=== PATIENT | female | born 1990 | race Caucasian/White ===

== ENCOUNTER 2017-05-11 20:35 | Emergency (ER) | payer OTHER ==
[2017-05-11 21:16] VITALS: BP 112/55
[2017-05-11] MEDS ORDERED: Ondansetron ODT TAB* 4 MG PO ONE (21:44)
--- NOTE | 2017-05-11 21:47 | UC ---
Abdominal Pain Female HPI - History of Current Complaint Chief Complaint: UCGI Stated Complaint: VOMITING/DIARRHEA Time Seen by Provider: 05/11/17 21:41 Hx Last Menstrual Period: 04/07/17 ?: No Onset/Duration: Sudden Onset - this morning with nausea/ vomiting and diarrhea. , Still Present Timing: Constant Severity Initially: Moderate Severity Currently: Moderate Location: Other - just feels off/ not pain. Radiates: No Character: Unable to describe Aggravating Factor(s): Nothing - has not tried eating. Alleviating Factor(s): Nothing Associated Signs and Symptoms: Positive: Decreased Appetite, Nausea, Vomiting, Diarrhea. Negative: Fever, Constipation, Blood in Stool, Urinary Symptoms - Risk Factors Ectopic Risk Factor: Negative Ovarian Torsion Risk Factor: Reproductive Age Allergies/Adverse Reactions: Allergies Allergy/AdvReac Type Severity Reaction Status Date / Time No Known Allergies Allergy Verified 05/11/17 21:07 PMH/Surg Hx/FS Hx/Imm Hx Previously Healthy: Yes - Surgical History Surgical History: None - Family History Known Family History: Positive: Cardiac Disease, Hypertension, Diabetes - Social History Occupation: Employed Full-time Lives: With Family Alcohol Use: Rare Substance Use Type: None Smoking Status (MU): Light Every Day Tobacco Smoker Type: Cigarettes Amount Used/How Often: 5 -6 CIGS PERDAY Have You Smoked in the Last Year: Yes - Immunization History Most Recent Tetanus Shot: unknown Review of Systems Constitutional: Fatigue Gastrointestinal: Vomiting, Diarrhea, Nausea All Other Systems Reviewed And Are Negative: Yes Physical Exam Triage Information Reviewed: Yes Appearance: Well-Appearing, No Pain Distress, Well-Nourished Vital Signs: Initial Vital Signs Temp 97 F 05/11/17 21:08 Pulse 93 05/11/17 21:08 Resp 18 05/11/17 21:08 BP 112/55 05/11/17 21:08 Pulse Ox 99 05/11/17 21:08 Vital Signs Reviewed: Yes Eyes: Positive: Conjunctiva Clear ENT: Positive: Pharynx normal - moist mucus membranes., TMs normal Neck exam: Normal Respiratory Exam: Normal Cardiovascular Exam: Normal Abdomen Description: Positive: No Organomegaly. Negative: Nontender - mild suprapubic tenderness. Bowel Sounds: Positive: Present Musculoskeletal Exam: Normal Neurological Exam: Normal Psychological Exam: Normal Skin Exam: Normal Abd Pain Female Course/Dx - Differential Dx/Diagnosis Differential Diagnosis: Appendicitis, Constipation, Irritable Bowel Syndrome, Pancreatitis, Urinary Tract Infection Provider Diagnoses: Viral gastroenteritis. First trimester Discharge - Discharge Plan Condition: Stable Disposition: HOME Prescriptions: Ondansetron ODT TAB* [Zofran 4 MG Odt TAB*] 4 mg PO Q6H PRN #30 tab.odt PRN Reason: Nausea/Vomiting Patient Education Materials: Gastroenteritis (ED), (ED), Ondansetron (By mouth) Forms: *Work Release Additional Instructions: Make sure to start vitamins tomorrow.
[2017-05-11] MEDS ORDERED: Ondansetron ODT TAB* 4 MG ONE (21:57)
== END 2017-05-11 22:10 | disposition home or self-care (01) ==
LOC: UCCORT 20:35
DX: O26.891 Other specified pregnancy related conditions, first trimester (principal); A08.4 Viral intestinal infection, unspecified; Z3A.00 Weeks of gestation of pregnancy not specified; F17.210 Nicotine dependence, cigarettes, uncomplicated
CPT/HCPCS: 81003; 84702; 99202; A9270-GY; G0463

== ENCOUNTER 2018-11-29 15:51 | Observation (INO) | payer OTHER ==
[2018-11-29] MEDS ORDERED: Acetaminophen TAB* 325 MG PO PRN (19:34)
[2018-11-29] MEDS: Pantoprazole IV* 40 MG IV SCH (20:06)
[2018-11-29] MEDS: Morphine INJ* 2 MG/ML 1 ML SYRINGE (TWO MG - NEW SYRINGE VERSION) IV PRN (20:06)
[2018-11-29] MEDS: NS 0.9% 1000 ML** 1,000 ML IV SCH (20:22)
[2018-11-29] MEDS: Sucralfate TAB* 1 GM PO SCH (20:50)
[2018-11-29] MEDS ORDERED: Lidocaine 2% VISCOUS* 15 ML UDC SWISH SWAL PRN (23:19)
[2018-11-29] MEDS ORDERED: Al Hydrox/Mg Hydrox/Simet LIQ* 30 ML UDC PO ONE (23:20)
[2018-11-29] MEDS ORDERED: diPHENhydraMINE LIQ* 12.5 MG/5 ML UDC PO PRN (23:21)
[2018-11-29] MEDS ORDERED: Famotidine IV* 10 MG/ML 2 ML (20 mg) IV SLOW PU ONE (23:22)
--- NOTE | 2018-11-29 23:38 | HP ---
CC: Providers at [facility] in [facility] MEDICINE HISTORY AND PHYSICAL: DATE OF ADMISSION: 11/29/18 ATTENDING PHYSICIAN: Dr. Ana Ngo * (dictation provided by Hoda Ellison, RICCARDO ). CHIEF COMPLAINT: Abdominal pain. HISTORY OF PRESENT ILLNESS: Ms. Tammy Lucas is a 28-year-old female with a past medical history of cholecystectomy in 2017, borderline personality disorder who presents to the hospital today with concern for abdominal pain. Ms. Lucas states she has had ongoing abdominal pain since March of 2018. At first it seemed to only bother her when she would cough; however, by August of 2018, she noted that it hurt in her right upper abdomen and in her mid abdomen when she coughed, laughed or sneezed. She also notes to me that she has not really eaten much of anything since December of 2017 when she had her last child. She reports only a 10- pound weight loss, however. In the setting of this, she notes that 2 days ago she began to have much more severe pain. She described a sensation of pressure building up into her chest. She notes that she will arch her back and over the time this pressure will relieve and then she will feel better; however, the pain is constant. It is in epigastric region , radiating up through her mid chest and around to her right breast. For this pain, she went to the [facility] on 11/27/18. At that time, she had a CT abdomen and pelvis with IV contrast that showed "no acute intra- abdominal or pelvic abnormality". It does not appear that oral contrast was used. She had labs on 11/27/18 that were unremarkable. She was admitted to the hospital and treated with pantoprazole and Carafate. Despite this, she states she was unable to tolerate clear liquids and vomited when she tried to drink a small amount of broth yesterday. There was concern that perhaps the patient had duodenitis or a peptic ulcer disease and, therefore, she was transferred to [facility] when GI was not available over the weekend at that facility. The patient states her last bowel movement was today. She states she is still having continuous pain. I will note, in addition, that she did describe intermittent and frequent nausea at least since December, which is responsible for the fact that she feels like she has not been eating normally. However, she does not correlate the nausea and the pain together. PAST MEDICAL HISTORY: 1. Cholecystectomy in 2017. 2. Borderline personality disorder. 3. History of inpatient psychiatric admissions. 4. Anxiety. 5. Depression. 6. GERD. OUTPATIENT MEDICATIONS: Valacyclovir only. ALLERGIES: No known drug allergies. FAMILY HISTORY: Reviewed and noncontributory. SOCIAL HISTORY: No report of alcohol use. The patient states she does smoke marijuana. No report of other illicit drug use. She is a smoker and has had a nicotine patch at [facility], which I will continue. REVIEW OF SYSTEMS: A 14-point review of systems was completed with Ms. Lucas and all those not mentioned above were negative. PHYSICAL EXAMINATION GENERAL: Ms. Lucas is lying in the bed, she is in no acute distress. VITAL SIGNS: Temperature 98.3, pulse rate 62, respiratory rate 20, O2 saturation 98% on room air, blood pressure 114/57. LUNGS: Clear to auscultation bilaterally, with no accessory muscle use and good aeration. HEART: S1 and S2. No murmur, rub or gallop. Regular. ABDOMEN: The patient has soft abdomen throughout. She has no pain in the lower quadrants, but she does evidence pain when pressed in the epigastric and right upper quadrant. There is no rebound. There is no guarding. EXTREMITIES: No cyanosis or edema. NEURO: She is alert. She is oriented x3. She moves all extremities equally. There is no facial asymmetry or focal weakness. Extraocular movements are intact. SKIN: Intact. DIAGNOSTIC STUDIES/LAB DATA: CRP on 11/28/18 was 3.8. Her cannabinoids are positive. Opiates are positive and, I believe, this is status post opiates for pain in the emergency room and during the admission. Potassium 4.0, chloride 104, serum bicarbonate 27, BUN 17, creatinine 0.8, glucose 90. AST 20, ALT 24, alk phos 73. Chest x-ray shows no acute cardiomegaly, infiltrates or effusions. I do not see a beta-hCG and will check that now. WBC is 5.5, hemoglobin is 12.1, hematocrit 36.1, platelet count 230. ASSESSMENT: Ms. Lucas is a 28-year-old female with a past medical history of cholecystectomy in 2017, with psychiatric history including borderline personality disorder, anxiety, and depression, with psychiatric admissions, who presents to the hospital today with concern for severe abdominal pain and inability to tolerate oral intake. Our plans will be for inpatient admission with expected length of stay to be greater than 2 days for the followin. Abdominal pain: The patient's workup thus far has been negative. Her CT abdomen and pelvis is unremarkable. Her chest x-ray was unremarkable. Her labs are unremarkable. I have consulted with Dr. Torres from the Gastroenterology Service and she will be seeing her in the morning to reassess and to give further consideration as to whether an upper endoscopy would be warranted. In the meantime, the patient will be on pantoprazole and Carafate. She will have pain medications p.r.n. and I will continue with some gentle IV fluids. 2. DVT prophylaxis with SCDs. 3. Code status is full code. TIME SPENT: Approximately 60 minutes were spent on the admission of this patient, more than half that time was spent with the patient at the bedside, reviewing the events leading up to this hospitalization, performing the physical examination, and reviewing my plan of care. [place]ISON NP [id number]/[facility] #: [id number] JACLYN
[2018-11-30] MEDS: Morphine INJ* 2 MG/ML 1 ML SYRINGE (TWO MG - NEW SYRINGE VERSION) IV PRN ×2 (03:55→08:37)
[2018-11-30] MEDS: Nicotine PATCH 14 MG/24 HR* PATCH TRANSDERM SCH (09:01)
[2018-11-30] MEDS: Pantoprazole IV* 40 MG IV SCH ×2 (09:01→22:11)
[2018-11-30] MEDS: Sucralfate TAB* 1 GM PO SCH ×3 (09:01→22:10)
[2018-11-30] MEDS: Ondansetron INJ* 2 MG/ML VIAL IV PRN ×2 (09:16→18:00)
[2018-11-30] MEDS: NS 0.9% 1000 ML** 1,000 ML IV SCH ×2 (09:47→23:10)
--- NOTE | 2018-11-30 10:41 | PN ---
Subjective Date of Service: 11/30/18 Interval History: Pt has h/o increasing RUQ abdominal pain since March 2018. Was transferred from [place] for GI services and possible EGD. Pt continues to have constant RUQ pain that radiates to the LUQ. Pt gets "attacks" or "spasms" with deep breathing, cough, sneeze, laugh that cause intensification of pain and pain shoots below R breast. She states that she has had this pain constantly for the last 3d. She also reports constant nausea. She has vomiting x2d with eating. She is on clear liquid diet now, and was able to tolerate broth after Zofran. Pt denies chance of , heartburn, postnasal drainage, difficulty swallowing/pain/spasms with swallowing. She denies hematemesis, hematuria, hematochezia, melena, or changes in bowel or bladder habbits. She states she has had a cough for approximately 1 week and is getting over a cold, but denies fever. GI surgeries include: cholecystectomy 2016, Tubla ligation 12/2017. Objective Active Medications: Acetaminophen (Tylenol Tab*) 650 mg PO Q6H PRN Diphenhydramine HCl (Benadryl Liq*) 25 mg PO Q6H PRN Sodium Chloride (Ns 0.9% 1000 Ml) 1,000 mls @ 75 mls/hr IV PER RATE [facility] Lidocaine (Xylocaine 2% Viscous*) 15 ml SWISH SWAL TID PRN Morphine Sulfate (Morphine Vial*) 4 mg IV Q4H PRN Nicotine (Nicotine Patch 14 Mg/24 Hr*) 1 patch TRANSDERM DAILY [facility] Ondansetron HCl (Zofran Inj*) 4 mg IV Q6H PRN Pantoprazole Sodium (Protonix Iv*) 40 mg IV BID [facility] Pharmacy Profile Note (Nicotine Patch Removal Note*) 1 note PATCH OFF 2100 [facility] Sucralfate (Carafate*) 1 gm PO TID [facility] Vital Signs - 8 hr 11/30/18 11/30/18 11/30/18 03:37 03:55 07:54 Temperature 98.9 F 98.6 F Pulse Rate 56 70 Respiratory 18 18 16 Rate Blood Pressure 88/50 122/77 (mmHg) O2 Sat by Pulse 86 98 Oximetry 11/30/18 08:37 Temperature Pulse Rate Respiratory 18 Rate Blood Pressure (mmHg) O2 Sat by Pulse Oximetry Oxygen Devices in Use Now: None Appearance: Pt is sitting up in bed. She appears to be comfortable and in no acute distress. Eyes: No Scleral Icterus, PERRLA Ears/Nose/Mouth/Throat: NL Teeth, Lips, Gums, Mucous Membranes Moist Neck: NL Appearance and Movements; NL JVP, Trachea Midline Respiratory: Symmetrical Chest Expansion and Respiratory Effort, Clear to Auscultation Cardiovascular: NL Sounds; No Murmurs; No JVD, RRR, No Edema Abdominal: No Hepatosplenomegaly - Abdomen is obese, soft, nondistended. BS in all quadrants. LLQ, RLQ nontender; RUQ and LUQ both TTP, R>L, without rebound tenderness, guarding. No palpable masses. Lymphatic: No Cervical Adenopathy Neurological: Alert and Oriented x 3 Result Diagrams: 11/30/18 10:52 11/30/18 10:52 Assess/Plan/Problems-Billing Assessment: Pt is a 28yof with PMHx borderline personality disorder, anxiety, depression who was transferred from [place] for GI consult and possible EGD due to abd pain x8 months. - Patient Problems (1) RUQ abdominal pain Comment: -Pt continues to have RUQ abd pain; appears to be tolerating PO CL with Zofran -GI consulted, and I appreciate input: Pt will have EGD in a.m.; NPO after midnight ordered -Continue pain management, pantoprazole, carafate -EKG ordered (2) DVT prophylaxis Comment: -SCD ordered and in place (3) Full code status Status and Disposition: Inpatient. Discharge when stable.
[2018-11-30] MEDS ORDERED: Morphine INJ* 2 MG/ML 1 ML SYRINGE (TWO MG - NEW SYRINGE VERSION) ONE (10:45)
[2018-11-30 11:06] LABS: ABS Basophils 0 10^3/ul (0-0.2); ABS Eosinophils 0.1 10^3/ul (0-0.6); ABS Lymphocytes 1.6 10^3/ul (1.0-4.8); ABS Monocytes 0.4 10^3/ul (0-0.8); ABS Neutrophils 4.2 10^3/ul (1.5-7.7); ABS Nucleated RBC 0 10^3/ul; Eosinophil % 1.9 %; Hematocrit 39 % (35-47); Hemoglobin 13.3 g/dl (12.0-16.0); Lymphocyte % 25.5 %; Mean Corpuscular HGB Conc 34 g/dl (31-36); Mean Corpuscular Hemoglobin 29 pg (27-31); Mean Corpuscular Volume 84 fL (80-97); Mean Platelet Volume 7.7 fL (7.4-10.4); Nucleated Red Blood Cells % 0; Platelet Count 230 10^3/ul (150-450); Red Blood Count 4.64 10^6/ul (4.00-5.40); Red Cell Distribution Width 14 % (10.5-15); White Blood Count 6.4 10^3/ul (3.5-10.8)
[2018-11-30 11:28] LABS: Albumin 4.4 g/dL (3.2-5.2); Albumin/Globulin Ratio 1.6 (1-3); BUN/Creatinine Ratio 8.2 (8-20); Calcium 9.4 mg/dL (8.6-10.3); EGFR African American 97.8 (>60); EGFR Non-African American 80.8 (>60); Globulin 2.8 g/dL (2-4); Potassium 4.2 mmol/L (3.5-5.0); Total Bilirubin 0.6 mg/dL (0.2-1.0); Total Protein 7.2 g/dL (6.4-8.9)
[2018-11-30 14:20] LABS: C Reactive Protein 2.91 mg/L (<8.01)
[2018-11-30] MEDS: Morphine VIAL* 4 MG/ML VIAL (1 ml vial) IV PRN ×3 (14:54→23:12)
--- NOTE | 2018-11-30 15:44 | CONS ---
GASTROENTEROLOGY CONSULTATION REPORT: DATE OF CONSULT: 11/30/18 PROVIDER REQUESTING CONSULT: Hoda Ellison NP REASON FOR CONSULT: Abdominal pain. HISTORY OF PRESENT ILLNESS: Ms. Lucas is a 28-year-old woman with a history of gallstone pancreatitis status-post cholecystectomy in late 2016, anxiety, depression, borderline personality disorder, and history of inpatient psychiatric admission, who is admitted to the hospital with upper abdominal pain and nausea. Ms. Lucas states that she began to notice the discomfort in March 2018. She was recovering from a GI illness at that time and experienced an episode of sudden discomfort in her chest. She felt as if something was moving up from her abdomen into her chest. She had to arch her back to help relieve the pressure. Episode was short-lived and resolved spontaneously. She reports similar episodes occurring intermittently since this time. The episodes last from seconds to 15 minutes. The symptom is typically triggered by coughing, laughing , or sneezing. Associated with a chest tightness and feeling hard to breathe. She also reports constant nausea without vomiting also over the past 6-8 months. She estimates that she has lost about 10 pounds since August. Beginning 2-3 days ago, she began to have much more severe pain. The pain is similar to the prior episodes, although it does not resolve. This time the discomfort is more under her ribs, particularly on the right side. She denies any significant pain wrapping around her back. Nausea seems to be a bit worse over the last few days. She vomited twice with eating. The emesis contained what she just attempted to eat. She has a bowel movement every few days, which is usually a bit loose. She has not seen any black or bloody stools. She has not noticed any acid reflux symptoms recently. No dysphagia symptoms. She has not tried to use anything to help relieve the symptoms. She denies any NSAID use. No increased stress recently. Ms Lucas presented to the ED on 11/27/18 in [place]. Labs at that time were essentially unremarkable other than a mildly elevated CRP. A D-dimer was 0.45 with cutoff being 0.49. She underwent a chest x-ray which was unremarkable. An abdominal CT with IV contrast (no oral contrast) was read as normal. She was given pantoprazole and Carafate without any significant improvement. Transferred to [facility]. PAST MEDICAL HISTORY: 1. Gallstone pancreatitis requiring hospitalization in [place] in May 2017. Status post cholecystectomy later in 2017. 2. Depression. 3. Anxiety. 4. Borderline personality disorder. 5. History of inpatient psychiatric admissions. 6. Genital herpes PAST SURGICAL HISTORY: The patient had a and tubal ligation as well as a cholecystectomy. MEDICATIONS: Valacyclovir to prevent outbreaks of genital herpes. ALLERGIES: No known drug allergies. FAMILY HISTORY: Grandmother had some sort of intestinal resection, although the patient is unable to recall any other details. Her mother is currently hospitalized at [facility] with viral meningitis. Patient was last in contact with her mother about 2 weeks ago (before her mother was feeling ill). No known GI or liver malignancies. No known Crohn disease or ulcerative colitis. SOCIAL HISTORY: . Homemaker. Three children. Her most recent child is less than 2 years old and suffers from torticollis and failure to thrive. History of smoking marijuana use. No other drug use. Smoker of tobacco. No significant alcohol use reported. REVIEW OF SYSTEMS: A 14-point review of systems completed and negative except as mentioned above. PHYSICAL EXAM: Vital Signs: Afebrile, heart rate 70, blood pressure 122/77, 98% on room air. General: Pleasant woman, in no acute distress. HEENT: Mucous membranes moist. Sclerae anicteric. Cardiovascular: Rate and rhythm regular. Pulmonary: Breathing comfortably. Abdomen: Soft, nondistended. Tender to very minimal palpation in the right upper quadrant. Also, tender in epigastrium although to a lesser degree. No rebound tenderness regarding. Extremities: No edema. Calves are soft without redness or palpable cords. Skin: No jaundice. Abdomen and flank examined and no rash noted. DIAGNOSTIC STUDIES/LAB DATA: Labs reviewed. White count 6.4, hemoglobin 13.3, hematocrit 39, platelet 230. Chemistry panel reviewed and normal, including a creatinine of 0.85. Lfts: AST of 24, ALT 25, alk phos 65, bilirubin 0.6. Imaging: No imaging obtained at [facility]. I reviewed the charts from [place] [facility]. She had a CT abdomen and pelvis with IV contrast which describes a normal-appearing pancreas and gastrointestinal tract. Mild splenomegaly noted. Patient noted to be post-cholecystectomy without mention of biliary ductal dilation. A chest x-ray from [place] also read as unremarkable without effusions or infiltrates. IMPRESSION AND RECOMMENDATIONS: Ms. Lucas is a 28-year-old with a significant psychiatric history and gallstone pancreatitis status-post cholecystectomy, who presents with acute on chronic abdominal pain and nausea. 1. Abdominal pain and nausea: Patient reports intermittent symptoms since 2017 with a sudden increase in severity over the past 2 to 3 days. Whereas before she was experiencing a sensation that something was moving from her stomach into her chest, she is now reporting a discomfort in her right upper quadrant under her ribs and nausea with a few episodes of vomiting. There is a pleuritic component to her symptoms. She does not identify relationship between eating and the pain. Labs and imaging have been unremarkable with the exception of a very mildly elevated CRP at [place]. Differential includes: GERD, esophagitis, large hiatal hernia, PUD, viral gastroenteritis (in setting of chronic GI symptoms), functional GI disorder. Pancreatitis less likely given normal lipase at [place]. Would also consider non-GI causes of pain given the pleuritic type pain. Of note, a CXR and D-dimer were normal at [place]. - Continue PPI IV b.i.d. - Continue Carafate q.i.d. - Avoid NSAIDs. - Would recommend obtaining an EKG given the history of chest discomfort and pleuritic type symptom - Please check lipase and CRP here. - Can continue clears today. Please keep n.p.o. after midnight. We will plan for an EGD tomorrow. Thank you very much for this consult. We will continue to follow. [id number]/[facility] #: [id number] JACLYN
[2018-11-30] MEDS: Nicotine Patch Removal NOTE PATCH OFF SCH (22:15)
[2018-12-01] MEDS: Morphine VIAL* 4 MG/ML VIAL (1 ml vial) IV PRN ×5 (03:14→20:52)
[2018-12-01] MEDS: Sucralfate TAB* 1 GM PO SCH ×4 (07:37→21:12)
[2018-12-01] MEDS: Nicotine PATCH 14 MG/24 HR* PATCH TRANSDERM SCH (07:37)
[2018-12-01] MEDS: Pantoprazole IV* 40 MG IV SCH ×2 (07:37→20:58)
--- NOTE | 2018-12-01 11:48 | PN ---
Subjective Date of Service: 12/01/18 Interval History: Pt continues to have RUQ pain below the ribs. She states that the shooting pain , which radiates to the LUQ and mid-sternum, has increased in occurrence. She states that she has a "bulge" in the RUQ that is larger than LUQ when she coughs. Morphine 4mg q4h is ordered prn pain, and pt has been requiring it every 4hr. She c/o dyspareunia. She continues to have nausea which is relieved with Zofran, which she states she takes prior to every meal. Pt denies vomiting, diarrhea, constipation. She denies pain in calves or LE swelling. Again, she states that she has had this pain in RUQ intermittently since March, but it has become constant in the last 4 days. She had a cold approximately 2 weeks ago, where she states she only had a slight cough. Currently, pt is rating her pain at 10/10. She states that her pain occurs at rest and with activity (movement, coughing, deep breathing). She states that the shooting pain is occurring more frequently, stating she was playing a game to try to take her mind off of the pain, and the shooting pain occurred at that time. Saw pt later in afternoon to discuss pain management. She is getting Morphine 4mg IV q4h. She states that her pain is only moderately controlled with Morphine, stating that it doesn't go below 7. I suggested Tramadol and Cyclobenzaprine for questionable costochondritis, and she started to sob, stating that she was given Tramadol in [place] and that she doesn't want to go back on something that has already failed to control her pain. We discussed the anti-inflammatory properties of that med, and she still refused. She is dissatisfied with pain control at this point. We will await MRCP test and reassess tomorrow. This case was discussed with Dr. Cobos, who is in agreement with the plan. Objective Active Medications: Acetaminophen (Tylenol Tab*) 650 mg PO Q6H PRN Diphenhydramine HCl (Benadryl Liq*) 25 mg PO Q6H PRN Sodium Chloride (Ns 0.9% 1000 Ml) 1,000 mls @ 75 mls/hr IV PER RATE [facility] Lidocaine (Xylocaine 2% Viscous*) 15 ml SWISH SWAL TID PRN Morphine Sulfate (Morphine Vial*) 4 mg IV Q4H PRN Nicotine (Nicotine Patch 14 Mg/24 Hr*) [address] [facility] Ondansetron HCl (Zofran Inj*) 4 mg IV Q6H PRN Pantoprazole Sodium (Protonix Iv*) [address] [facility] Pharmacy Profile Note (Nicotine Patch Removal Note*) 1 note PATCH OFF [address] [facility] Sucralfate (Carafate*) [address] [facility] Vital Signs: Temp Pulse Resp BP Pulse Ox 98.3 F 68 16 123/71 98 12/01/18 11:28 12/01/18 11:28 12/01/18 11:41 12/01/18 11:28 12/01/18 11:28 Oxygen Devices in Use Now: None Appearance: Pt is resting in bed with HOB elevated. She is in no acute distress. She is calm and cooperative. Eyes: No Scleral Icterus, PERRLA Ears/Nose/Mouth/Throat: NL Teeth, Lips, Gums, Mucous Membranes Moist Neck: NL Appearance and Movements; NL JVP, Trachea Midline Respiratory: Symmetrical Chest Expansion and Respiratory Effort, Clear to Auscultation Cardiovascular: NL Sounds; No Murmurs; No JVD, RRR, No Edema, - - Midsternum and R lower ribs TTP. Abdominal: No Hepatosplenomegaly, - - Abdomen is obese, nondistended. TTP at RUQ; no rebound tenderness, no tenderness in other quadrants. Liver nonpalpable. Extremities: No Edema, No Clubbing, Cyanosis Neurological: Alert and Oriented x 3 Result Diagrams: 12/02/18 07:28 12/02/18 07:29 Assess/Plan/Problems-Billing Assessment: Pt is a 28yof with PMHx borderline personality disorder, anxiety, depression who was transferred from [place] for GI consult and possible EGD due to abd pain x8 months. - Patient Problems (1) RUQ abdominal pain Comment: -Pt continues to have RUQ abd pain; appears to be tolerating PO CL with Zofran -GI consulted, and I appreciate input: EGD WNL; MRCP ordered -Continue pain management, pantoprazole, carafate -EKG ordered, WNL -Dr. Campa consulted, re: pain management (2) Chest wall tenderness Comment: -Chest wall and lower rib cage TTP, ? costochondritis -Pt refusing tramadol, cyclobenzaprine, stating they didn't work at [place] ( tramadol on rx list from [place]) -Consult Dr. Campa (3) Dyspareunia Comment: -Pt c/o dyspareunia -Urine for GC/chlam ordered (4) DVT prophylaxis Comment: -SCD ordered and in place (5) Full code status Status and Disposition: Inpatient. Discharge when stable.
[2018-12-01] MEDS ORDERED: fentaNYL* 50 MCG/ML 2 ML VIAL (100 MCG VIAL) ONE (12:18)
[2018-12-01] MEDS ORDERED: Midazolam* 1 MG/ML 10 ML VIAL (10 MG) ONE (12:18)
[2018-12-01] MEDS: NS 0.9% 1000 ML** 1,000 ML IV SCH (13:45)
[2018-12-01] MEDS: Ondansetron INJ* 2 MG/ML VIAL IV PRN (18:59)
[2018-12-01] MEDS: Nicotine Patch Removal NOTE PATCH OFF SCH (21:14)
--- NOTE | 2018-12-01 21:16 | PRO ---
CC: [facility] * DATE OF PROCEDURE: 12/01/18 - ROOM #340 PROCEDURE: EGD. INDICATION: Right upper quadrant pain. REFERRING PHYSICIAN: Dr. Ngo. MEDICATIONS GIVEN: 100 mcg IV fentanyl, 12 mg IV Versed. DESCRIPTION OF PROCEDURE: After the EGD procedure, including the risks, benefits, and alternatives, not limited to perforation, surgery, and/or were explained to Mrs. Lucas, written consent was then obtained, IV medication was given, and a bite-block was placed between the teeth. An Olympus gastroscope was then inserted into the patient's mouth, advanced down the esophagus, into the stomach, into the distal duodenum. In the esophagus, at the GE junction, the Z-line was intact. No erosive esophagitis, stricture, or ring was seen. The scope was advanced through the GE junction into the the body of the stomach. Retroflex and forward views were unremarkable. The scope was advanced through widely patent pylorus into the duodenal bulb, into the distal duodenum, both of which were unremarkable. The scope was then withdrawn from the patient. She tolerated the procedure well and was returned to the recovery room in stable condition. IMPRESSION: 1. Complete upper endoscopy into the distal duodenum with biopsies. 2. Biopsies for Helicobacter pylori and celiac disease. 3. I do wonder if she could have a retained common bile duct stone. I will make arrangements for an MRCP. [id number]/[facility] #: [id number] [facility]
[2018-12-02] MEDS: Morphine VIAL* 4 MG/ML VIAL (1 ml vial) IV PRN ×4 (01:02→13:48)
[2018-12-02] MEDS: NS 0.9% 1000 ML** 1,000 ML IV SCH (05:24)
[2018-12-02 07:35] LABS: Hematocrit 39 % (35-47); Hemoglobin 13.4 g/dl (12.0-16.0); Mean Corpuscular HGB Conc 34 g/dl (31-36); Mean Corpuscular Hemoglobin 28 pg (27-31); Mean Corpuscular Volume 83 fL (80-97); Mean Platelet Volume 7.8 fL (7.4-10.4); Platelet Count 218 10^3/ul (150-450); Red Blood Count 4.75 10^6/ul (4.00-5.40); Red Cell Distribution Width 14 % (10.5-15); White Blood Count 6.4 10^3/ul (3.5-10.8)
[2018-12-02 07:55] LABS: Albumin 4.4 g/dL (3.2-5.2); Albumin/Globulin Ratio 1.6 (1-3); BUN/Creatinine Ratio 8.2 (8-20); Calcium 9.5 mg/dL (8.6-10.3); EGFR African American 97.8 (>60); EGFR Non-African American 80.8 (>60); Globulin 2.7 g/dL (2-4); Potassium 4.4 mmol/L (3.5-5.0); Total Bilirubin 0.7 mg/dL (0.2-1.0); Total Protein 7.1 g/dL (6.4-8.9)
[2018-12-02] MEDS: Nicotine PATCH 14 MG/24 HR* PATCH TRANSDERM SCH (09:43)
[2018-12-02] MEDS: Pantoprazole IV* 40 MG IV SCH (09:43)
[2018-12-02] MEDS: Sucralfate TAB* 1 GM PO SCH ×2 (09:43→13:56)
[2018-12-02] MEDS: Ondansetron INJ* 2 MG/ML VIAL IV PRN (11:30)
[2018-12-02 14:09] LABS: Neisseria gonorrhoeae (GC) RNA Negative (Negative)
[2018-12-02 15:51] VITALS: BP 108/67
--- NOTE | 2018-12-02 17:32 | CONSULT ---
Consult Consult: INPATIENT PAIN CONSULTATION Tammy Lucas is a 28 year old female. She states she was fine until 2016. She was 10 weeks when she developed intense RUQ pain. She went to [facility] ER and was admitted. She had an ultrasound of her GB and liver and according to the patient, things looked ok. Her bloodwork was ok. Due to her intense pain, she had a cholecystectomy done. She was discharged. She states that she was told there were large stones in the GB and CBD. She did ok until December 2017 when she had a for her son. In the summer of 2017 she was holding her son when she coughed and had intense pain in her RUQ. It passed. She saw her MOTOR INSTALLER and reported this and was told the pain was not likely from her uterus or from anything related to her . A few months later she saw her primary care. She continued to have sharp RUQ pain when she coughed. She went to the ER twice but no one was able to pinpoint the cause. She has tried Zantac or TUMS and they helped initially but no longer relieve the pain. She went back to [place] in late October. She had a CT with IV contrast of her abdomen/pelvis which was reportedly normal. She had normal bloodwork. She was started on a PPI and was transferred to [facility]. She saw Dr. Torres. She had an EGD with DR. Chambers. No abnormalities. MRCP was done that showed nothing to explain her symptoms. Bile duct was not dilated. Blood work, LFTs unremarkable. She was given Morphine which helped a little. I am asked to see her. PAST MEDICAL HISTORY: Cholecystectomy, , 2 vaginal deliveries. Depression. Borderline Personality Disorder Allergies Allergy/AdvReac Type Severity Reaction Status Date / Time No Known Allergies Allergy Verified 05/11/17 21:07 Current Medications Acetaminophen (Tylenol Tab*) 650 mg PO Q6H PRN PRN Reason: PAIN Diphenhydramine HCl (Benadryl Liq*) 25 mg PO Q6H PRN PRN Reason: PRURITIS Last Admin: 11/29/18 23:47 Dose: 25 mg Sodium Chloride (Ns 0.9% 1000 Ml) 1,000 mls @ 75 mls/hr IV PER RATE EDUARDO Last Admin: 12/02/18 05:24 Dose: 75 mls/hr Lidocaine (Xylocaine 2% Viscous*) 15 ml SWISH SWAL TID PRN PRN Reason: DYSPEPSIA Last Admin: 11/29/18 23:43 Dose: 15 ml Morphine Sulfate (Morphine Vial*) 4 mg IV Q4H PRN PRN Reason: PAIN - MILD Last Admin: 12/02/18 13:48 Dose: 4 mg Nicotine (Nicotine Patch 14 Mg/24 Hr*) 1 patch TRANSDERM DAILY [facility] Last Admin: 12/02/18 09:43 Dose: 1 patch Ondansetron HCl (Zofran Inj*) 4 mg IV Q6H PRN PRN Reason: NAUSEA Last Admin: 12/02/18 11:30 Dose: 4 mg Pantoprazole Sodium (Protonix Iv*) 40 mg IV BID [facility] Last Admin: 12/02/18 09:43 Dose: 40 mg Pharmacy Profile Note (Nicotine Patch Removal Note*) 1 note PATCH OFF 2100 [facility] Last Admin: 12/01/18 21:14 Dose: 1 note Sucralfate (Carafate*) 1 gm PO TID [facility] Last Admin: 12/02/18 13:56 Dose: 1 gm SOCIAL HISTORY: Smokes 1/4 ppd or less. Denies alcohol. Smokes marijuana. 3 Children Vital Signs Temp Pulse Resp BP Pulse Ox 98.1 F 70 18 108/67 97 12/02/18 15:30 12/02/18 15:30 12/02/18 15:30 12/02/18 15:30 12/02/18 15:30 EXAM: LUNGS: Clear bilaterally HEART: Reg rhythm ABDOMEN: Soft, some tenderness in RUQ EXTREMITIES: Normal tone NEUROLOGIC: Alert, moves all 4 extremities ASSESSMENT: 1. RUQ Abdominal pain-Unclear source PLAN: I don't think opioids are a good choice here, as we don't know what we are treating and her pain was not adequately controlled even with IV morphine. By report she has been hospitalized for mental health reasons, although I don't know for what. I think she might do well with a TCA. I think we should try Nortryptyline, 10 mg at HS for 3 days then increase to 20 mg at HS. She can follow up as needed.
--- NOTE | 2018-12-02 20:32 | CONS ---
GASTROENTEROLOGY CONSULT FOLLOWUP: DATE OF CONSULT: 12/02/18 CONSULTING PRACTITIONERS: Gabby Juarez; Pippa Hernandez, [place], [place]. HISTORY OF PRESENT ILLNESS: Inpatient followup - this 28-year-old woman with 3 children, 5 and under, was admitted 3 days ago, complaining of nausea and abdominal pain. She will at intervals state that the pain is continuous, but other times not manifested. She was seen in consultation on 11/30/[address] Torres, who found her to have a heart rate of 70, afebrile, and in no acute distress. She was breathing comfortably. Her abdomen was soft and nondistended. The next day, she had upper endoscopy that was normal with a little bit of bile in the stomach. She then had MRCP, which did not show any biliary abnormality. Repeat labs are normal including CBC and LFTs. Today, the report from the nurses is that she has been in her room active. She had a muffin for breakfast and then complained of nausea. She has been getting regular doses of morphine. At lunch she ate about 25%. As I entered the room, she was sitting up in a west position in an animated conversation with a male visitor, who she described as her best friend. Her is at home taking care of her children. Her she says is recuperating from an aneurysm treatment at [facility]. This she believes was an intracranial transcatheter She continued talking and moving around the bed without any hesitancy until my request to examine her abdomen. She positioned herself supine without any discomfort. The abdomen is obese with early panniculi. Bowel sounds are normal. The abdomen is quite soft and there is no tenderness. IMPRESSION: Probable functional abdominal pain. Constipation predominant pattern is a possibility and MiraLax was suggested. She said that she had that. In her earlier statement that her bowels had been constipated after cholecystectomy, she said it was not really significant as she would still go every other day and it was no big deal. She was hesitant to use MiraLax as she did not want to have diarrhea. She became distraught and began complaining using colloquial language, saying that she would not be able to care for her children. She does have an appointment with her primary tomorrow. She said that she had not previously sought care for her nausea and periodic abdominal distress that had begun 10 months ago, as she had not had the time to see her primary. At this time, it was conveyed to her and her guest that there was no focused symptom unexplored and so no obvious high-yield tests remained to be done and that it did seem appropriate at this point to discharge her and have her follow up with her primary, where the priorities could be reassessed again. [id number]/[facility] #: [id number] JACLYN
--- NOTE | 2018-12-03 00:05 | DS ---
CC: [facility] * DISCHARGE SUMMARY: DATE OF ADMISSION: 11/29/18 DATE OF DISCHARGE: 12/02/18 PRIMARY CARE PROVIDER: [facility] in [place]. ATTENDING PHYSICIAN: Dr. Rosado * (dictated by TJ Suazo) PRIMARY DIAGNOSIS: Right upper quadrant abdominal pain. SECONDARY DIAGNOSES: 1. Gastroesophageal reflux disease. 2. Depression. 3. Anxiety. 4. Borderline personality disorder. 5. History of inpatient psychiatric admissions. STUDIES WHILE IN THE HOSPITAL: 1. Electrocardiogram 11/30/18, sinus rhythm, normal P axis, ventricular rate 60 to 99. Normal EKG. 2. EGD 12/01/18, Impression: Complete upper endoscopy into the distal duodenum with biopsies. Biopsies for Helicobacter pylori and celiac disease. I wonder if she could have a retained common bile duct stone. I will make arrangements for an MRCP. 3. MRCP 12/01/18, Impression: No MRI findings to correlate with patient's symptomatology, specifically no biliary abnormality. C. trachomatis negative and gonorrhea negative. CLOtest negative. Celiac test pending. DISCHARGE MEDICATIONS: Home Medications: 1. Valacyclovir 500 mg p.o. daily 2. Zofran 4 mg p.o. q.6 hours p.r.n. [place] Medications: Nortriptyline 10 mg p.o. at bedtime x3 to 7 days, then increase to 20 mg p.o. at bedtime. HISTORY OF PRESENT ILLNESS/HOSPITAL COURSE: Ms. Lucas is a 28-year-old female with past medical history as described above who was transferred from [place] due to abdominal pain. [place] was unable to accommodate the patient as it was thought that she needed gastroenterology input, which she could receive at [facility]. The patient has had right upper quadrant abdominal pain that has been intermittent since March 2018. The pain would only be apparent when she coughed. By August, the pain was present when she coughed, laughed, or sneezed. In the past few days, the patient states that the pain has become constant and more severe. She has been unable to manage it and sought medical attention at [place] [facility] on 11/27/18. Abdominal, pelvic CT with IV contrast showed no acute intraabdominal or pelvic abnormality. She was admitted and treated with pantoprazole and Carafate as well as Dilaudid and tramadol. She was unable to tolerate clear liquids and would vomit. There was concern that the patient had duodenitis or peptic ulcers , so she was therefore transferred to [facility]. She was directly admitted and gastroenterology services were consulted. The patient continued to have pain throughout her hospital stay that was only partially managed with IV morphine. The patient often required Zofran prior to meals in order to avoid nausea and vomiting. During the hospital stay, the patient had an EGD that was within normal limits. She also had MRCP that was within normal limits. Gastroenterology could find no acute cause for her abdominal pain. Dr. Campa was consulted regarding inability to control pain. The patient was suggested to be placed on nortriptyline as it appears that she has a nerve pain. This will be started as outpatient. At the time of discharge, the patient denies chest pain or shortness of breath. She denies cough or fever. She continues to have right upper quadrant pain, as it has since presented to the ER in [place], radiates to the left upper quadrant, under her right breast , and to her sternum when she coughs, laughs, or inhales deeply. Her pain is constant. The patient continues to have occasional nausea prior to eating meals. She denies vomiting. She denies constipation or diarrhea. She denies pain in the lower extremities or swelling in the lower extremities. Ms. Lucas is stable for discharge. PHYSICAL EXAMINATION: Vital Signs: Temperature 98.1 temporally, heart rate 70 , respiratory rate 18, oxygen saturation 97% on room air, blood pressure 108/ 67. General: Ms. Lucas is a well-developed, well-nourished obese white woman who is sitting up in bed, she is in no acute distress. She appears her stated age. HEENT: Visual [place] are grossly intact. Pupils are equally round and reactive to light. Sclerae are without icterus. Hearing is grossly intact. Oral mucous membranes are moist and without lesions. The pharynx is clear. Neck: Full range of motion. Thyroid not palpable. Trachea at midline. There is no lymphadenopathy. Cardiovascular: S1 and S2 present. There is regular rate and rhythm. There are no murmurs, rubs, or gallops. There is no JVD. Respiratory: Symmetrical chest expansion with no use of accessory muscles. The patient takes shallower breaths due to pain with inhalation. Lungs are clear to auscultation. There are no rhonchi, wheezes, or rubs. Abdomen: There are bowel sounds in all quadrants. The abdomen is soft. There is no tenderness at the right or left lower quadrant. There is no tenderness at the left upper quadrant. Right upper quadrant is tender to palpation. There is no hepatosplenomegaly. Extremities: Skin is warm and smooth bilaterally. There is no edema, clubbing, or cyanosis. Radial and pedal pulses are palpable. Neuro: The patient is awake, alert, and oriented x3. She is able to move all of her extremities. She has a steady gait with no impairments. DISCHARGE PLAN: Ms. Lucas will be discharged home. ACTIVITY: As tolerated. DIET: Regular. MEDICATIONS: New medication: Nortriptyline, take as prescribed. EDUCATION: 1. Follow up with primary care physician tomorrow as scheduled. 2. Follow up with Gastroenterology if symptoms persist. 3. Follow up with Dr. Campa if needed. 4. Return to the ER or nearest hospital if you experience any worsening of symptoms, shortness of breath, lightheadedness, dizziness, chest discomfort, high fevers, chills, night sweats, loss of consciousness, or any other worrisome signs or symptoms. This is a summarized report of a complex medical history and hospital stay. For further details, please see the entire medical record. TIME SPENT: Approximately 45 minutes was spent on this discharge, greater than half of that time was spent [id number] with the patient discussing the discharge plans and instructions. TJ HAYES [id number]/[facility] #: [id number] JACLYN
== END 2018-12-02 18:10 | disposition home or self-care (01) | DRG 251 ==
LOC: INTOOBSV 18:45 → SSU 18:45
PROVIDERS: ADMIT Internal Medicine; ATTEND Internal Medicine
PROC: 0DD98ZX Extraction of Duodenum, Via Natural or Artificial Opening Endoscopic, Diagnostic (ICD-10-PCS; principal; 2018-12-01)
DX: R10.11 Right upper quadrant pain (principal); K21.9 Gastro-esophageal reflux disease without esophagitis; F32.9 Major depressive disorder, single episode, unspecified; F41.9 Anxiety disorder, unspecified; F60.3 Borderline personality disorder; R07.89 Other chest pain; N94.10 Unspecified dyspareunia; F17.210 Nicotine dependence, cigarettes, uncomplicated; F12.90 Cannabis use, unspecified, uncomplicated; Z79.899 Other long term (current) drug therapy; Z90.49 Acquired absence of other specified parts of digestive tract
CPT/HCPCS: 36415; 74181; 76376; 80053; 83690; 85025; 85027; 86140; 87077; 87491; 87591; 88305; 93005; 99156; 99157; A9270-GY; J2250; J2270; J2405; J3010